=== PATIENT | male | born 1990 | race Caucasian/White ===

== ENCOUNTER 2019-08-15 21:07 | Emergency (ER) | payer MEDICAID ==
[~2019-08-15] VITALS: Ht 170.2 cm; Wt 63.6 kg
[2019-08-15] MEDS ORDERED: ACETAMINOPHEN 325 MG TABLET ONE (21:32)
[2019-08-15 21:41] LABS: APPEARANCE,URINE CLEAR (CLEAR); BILIRUBIN,URINE NEGATIVE (NEGATIVE); GLUCOSE, URINE (UA) NEGATIVE (NEGATIVE); KETONES,URINE NEGATIVE (NEGATIVE); LEUKOCYTE ESTERASE ,URINE NEGATIVE (NEGATIVE); NITRATE,URINE NEGATIVE (NEGATIVE); OCCULT BLOOD,URINE NEGATIVE (NEGATIVE); PROTEIN,URINE NEGATIVE (NEGATIVE); UROBILINOGEN,URINE 0.2 mg/dL (<=1.0)
[2019-08-15] MEDS ORDERED: ACETAMINOPHEN 325 MG TABLET PO ONE (21:45)
[2019-08-15 21:47] LABS: BACTERIA,URINE None Seen /HPF (None Seen); RBC,URINE None Seen /HPF (0-2); WBC,URINE None Seen /HPF (0-5)
[2019-08-15 21:48] LABS: BASOPHILS % (AUTO) 0.5 % (0.0-2.0); EOSINOPHILS % (AUTO) 0.3 % (1.0-6.0); HEMATOCRIT 47.5 % (41-53); HEMOGLOBIN 16.1 g/dL (13.5-17.5); LYMPHOCYTES # (AUTO) 0.9 K/uL (1.0-4.8); MEAN CORPUSCULAR HEMOGLOBIN 31.5 pg (26.0-34.0); MEAN CORPUSCULAR HGB CONC 33.9 G/dL (31.0-37.0); MEAN CORPUSCULAR VOLUME 93 fL (80-100); MONOCYTES # (AUTO) 0.7 K/uL (0.1-1.0); MONOCYTES % (AUTO) 10.6 % (2.0-9.0); NEUTROPHILS # (AUTO) 4.8 K/uL (1.8-7.7); NEUTROPHILS % (AUTO) 74.6 % (40.0-70.0); PLATELET COUNT (AUTO) 208 K/uL (150-450); RED BLOOD CELL COUNT(AUTO) 5.11 MIL/uL (4.50-5.90); RED CELL DISTRIBUTION WIDTH 12.8 % (11.5-14.5)
[2019-08-15 21:49] LABS: AMPHET/METH SCREEN,URINE NEGATIVE (NEGATIVE); BARBITURATE SCREEN, URINE NEGATIVE (NEGATIVE); BENZODIAZEPINES SCREEN,URINE NEGATIVE (NEGATIVE); CANNABINOID SCREEN,URINE NEGATIVE (NEGATIVE); COCAINE SCREEN,URINE NEGATIVE (NEGATIVE); METHADONE SCREEN, URINE NEGATIVE (NEGATIVE); OPIATE SCREEN,URINE NEGATIVE (NEGATIVE)
[2019-08-15 21:52] LABS: PHENCYCLIDINE SCREEN,URINE NEGATIVE (NEGATIVE)
[2019-08-15] MEDS ORDERED: SODIUM CHLORIDE 0.9% 1,900 ML IV ONE (22:01)
[2019-08-15 22:04] LABS: ANION GAP 9 mmol/L (8-16); CALCIUM, TOTAL 8.6 mg/dL (8.8-10.5); CARBON DIOXIDE 29 mmol/L (22-29); CHLORIDE 99 mmol/L (98-107); GLOMERULAR FILTR. RATE CALC > 60 mL/min (>60); GLUCOSE,RANDOM 108 mg/dL (70-110); POTASSIUM 4.1 mmol/L (3.5-5.1); SODIUM SERUM 137 mmol/L (136-145); UREA NITROGEN, BLOOD 10 mg/dL (7-18)
[2019-08-15 22:11] LABS: ALANINE AMINOTRANSFERASE 46 U/L (12-78); ALBUMIN 4.1 g/dL (3.4-5.0); ALKALINE PHOSPHATASE 78 U/L (46-116); ASPARTATE AMINOTRANSFERASE 25 U/L (15-37); BILIRUBIN,TOTAL 0.2 mg/dL (0.1-1.0); TOTAL PROTEIN, SERUM 7.4 g/dL (6.4-8.2)
[2019-08-15] MEDS ORDERED: 0.9% SODIUM CHLORIDE 10 ML SYRINGE IVP PRN (22:15)
[2019-08-15] MEDS ORDERED: KETOROLAC TROMETHAMINE 30 MG/ML VIAL IVP ONE (22:15)
[2019-08-15] MEDS ORDERED: SODIUM CHLORIDE 0.9% 100 ML ONE (23:56)
[2019-08-15] MEDS ORDERED: IOVERSOL 350 MG/ML 100 ML VIAL ONE (23:56)
[2019-08-16] MEDS ORDERED: DOXYCYCLINE HYCLATE 100 MG CAPSULE PO ONE (02:45)
[2019-08-16 02:48] VITALS: BP 124/76
[2019-08-17] MEDS ORDERED: DOXY100C PO (21:09)
== END 2019-08-16 03:54 | disposition home or self-care (01) ==
LOC: EMS 21:08
DX: I88.0 Nonspecific mesenteric lymphadenitis (principal); J18.9 Pneumonia, unspecified organism; F12.90 Cannabis use, unspecified, uncomplicated; F15.90 Other stimulant use, unspecified, uncomplicated; Z87.891 Personal history of nicotine dependence
CPT/HCPCS: 36415; 71045; 74177; 76870; 80053; 80307; 81001; 83605; 85025; 87040; 87491; 87591; 93005; 96374; 99285; 99406; G0480; J1885; J7030; J7050; Q9967

== ENCOUNTER 2019-08-17 20:53 | Inpatient (IN) | payer MEDICAID ==
[~2019-08-17] VITALS: Ht 170.2 cm; Wt 69.5 kg
[2019-08-17] MEDS ORDERED: DOXY100C PO (21:09)
[2019-08-17] MEDS ORDERED: PIPERACILLIN/TAZO 3.375 GM/D5W 50 ML IV ONE (21:30)
[2019-08-17] MEDS ORDERED: ACETAMINOPHEN 500 MG TABLET PO ONE (21:30)
[2019-08-17] MEDS ORDERED: 0.9% SODIUM CHLORIDE 10 ML SYRINGE IVP PRN (21:30)
[2019-08-17] MEDS ORDERED: AZITHROMYCIN 500 MG/NS 250 ML IV ONE (21:30)
[2019-08-17] MEDS ORDERED: SODIUM CHLORIDE 0.9% 2,100 ML IV ONE (21:30)
[2019-08-17] MEDS ORDERED: VANCOMYCIN HCL 1 GM/D5% WATER 200 ML IV ONE (21:30)
[2019-08-17 22:08] LABS: BASOPHILS % (AUTO) 0.4 % (0.0-2.0); EOSINOPHILS % (AUTO) 0 % (1.0-6.0); HEMATOCRIT 44.3 % (41-53); LYMPHOCYTES # (AUTO) 0.8 K/uL (1.0-4.8); MEAN CORPUSCULAR HEMOGLOBIN 31.4 pg (26.0-34.0); MEAN CORPUSCULAR HGB CONC 33.7 G/dL (31.0-37.0); MEAN CORPUSCULAR VOLUME 93 fL (80-100); MONOCYTES # (AUTO) 0.3 K/uL (0.1-1.0); MONOCYTES % (AUTO) 9.2 % (2.0-9.0); NEUTROPHILS # (AUTO) 2.4 K/uL (1.8-7.7); NEUTROPHILS % (AUTO) 68.4 % (40.0-70.0); PLATELET COUNT (AUTO) 140 K/uL (150-450); RED BLOOD CELL COUNT(AUTO) 4.76 MIL/uL (4.50-5.90); RED CELL DISTRIBUTION WIDTH 12.6 % (11.5-14.5)
[2019-08-17 22:15] LABS: ANION GAP 12 mmol/L (8-16); CALCIUM, TOTAL 8.1 mg/dL (8.8-10.5); CARBON DIOXIDE 25 mmol/L (22-29); CHLORIDE 98 mmol/L (98-107); CREATININE 1.01 mg/dL (0.60-1.30); GLOMERULAR FILTR. RATE CALC > 60 mL/min (>60); GLUCOSE,RANDOM 108 mg/dL (70-110); POTASSIUM 3.5 mmol/L (3.5-5.1); SODIUM SERUM 135 mmol/L (136-145); UREA NITROGEN, BLOOD 7 mg/dL (7-18)
[2019-08-17 22:22] LABS: LACTIC ACID 1.5 mmol/L (0.4-2.0)
[2019-08-17 22:24] LABS: INR 1.2 (0.9-1.1)
[2019-08-17 22:28] LABS: ALANINE AMINOTRANSFERASE 35 U/L (12-78); ALBUMIN 3.6 g/dL (3.4-5.0); ALKALINE PHOSPHATASE 61 U/L (46-116); ASPARTATE AMINOTRANSFERASE 22 U/L (15-37); BILIRUBIN,TOTAL 0.3 mg/dL (0.1-1.0); TOTAL PROTEIN, SERUM 6.6 g/dL (6.4-8.2)
[2019-08-17 22:31] LABS: B-TYPE NATRIURETIC PEPTIDE 8 pg/mL (0-100)
[2019-08-17 22:33] LABS: APPEARANCE,URINE CLEAR (CLEAR); BILIRUBIN,URINE NEGATIVE (NEGATIVE); GLUCOSE, URINE (UA) NEGATIVE (NEGATIVE); KETONES,URINE NEGATIVE (NEGATIVE); LEUKOCYTE ESTERASE ,URINE NEGATIVE (NEGATIVE); NITRATE,URINE NEGATIVE (NEGATIVE); OCCULT BLOOD,URINE NEGATIVE (NEGATIVE); PH,URINE 7.5 (5.0-8.0); PROTEIN,URINE NEGATIVE (NEGATIVE); UROBILINOGEN,URINE 0.2 mg/dL (<=1.0)
[2019-08-17 22:45] LABS: PLATELET MORPHOLOGY COMMENT NORMAL
[2019-08-17 23:23] LABS: INFLUENZA TYPE A NEGATIVE FOR TYPE A (NEGATIVE); INFLUENZA TYPE B NEGATIVE FOR TYPE B (NEGATIVE)
[2019-08-18] MEDS ORDERED: ACETAMINOPHEN 325 MG TABLET PO PRN
[2019-08-18 00:21] VITALS: BP 107/57
[2019-08-18] MEDS ORDERED: SODIUM CHLORIDE 0.9% 250 ML IV ONE (00:34)
[2019-08-18] MEDS ORDERED: ONDANSETRON HCL 4 MG/2 ML VIAL IVP PRN (03:45)
[2019-08-18] MEDS ORDERED: OxyCODONE HCL/ACETAMINOPHEN 5-325 MG TABLET PO PRN (03:45)
[2019-08-18] MEDS ORDERED: 0.9% SODIUM CHLORIDE 10 ML SYRINGE IVP PRN ×2 (03:45)
[2019-08-18] MEDS ORDERED: CefTRIAXone 1 GM/DEXTROSE 50 ML IV SCH (04:00)
[2019-08-18 05:18] VITALS: BP 101/62
[2019-08-18] MEDS ORDERED: LEVOFLOXACIN 750 MG/D5% WATER 150 ML IV SCH (06:00)
[2019-08-18 06:43] LABS: BASOPHILS % (AUTO) 1.1 % (0.0-2.0); EOSINOPHILS % (AUTO) 0.1 % (1.0-6.0); HEMATOCRIT 43.6 % (41-53); HEMOGLOBIN 14.6 g/dL (13.5-17.5); LYMPHOCYTES # (AUTO) 1.1 K/uL (1.0-4.8); LYMPHOCYTES % (AUTO) 43.5 % (22.0-44.0); MEAN CORPUSCULAR HEMOGLOBIN 31.2 pg (26.0-34.0); MEAN CORPUSCULAR HGB CONC 33.4 G/dL (31.0-37.0); MEAN CORPUSCULAR VOLUME 93 fL (80-100); MONOCYTES # (AUTO) 0.3 K/uL (0.1-1.0); MONOCYTES % (AUTO) 13.4 % (2.0-9.0); NEUTROPHILS # (AUTO) 1.1 K/uL (1.8-7.7); NEUTROPHILS % (AUTO) 41.9 % (40.0-70.0); PLATELET COUNT (AUTO) 124 K/uL (150-450); RED BLOOD CELL COUNT(AUTO) 4.68 MIL/uL (4.50-5.90); RED CELL DISTRIBUTION WIDTH 12.8 % (11.5-14.5)
[2019-08-18 07:21] LABS: ALANINE AMINOTRANSFERASE 29 U/L (12-78); ALKALINE PHOSPHATASE 51 U/L (46-116); ANION GAP 9 mmol/L (8-16); ASPARTATE AMINOTRANSFERASE 22 U/L (15-37); BILIRUBIN,TOTAL 0.2 mg/dL (0.1-1.0); CALCIUM, TOTAL 7.3 mg/dL (8.8-10.5); CARBON DIOXIDE 26 mmol/L (22-29); CHLORIDE 105 mmol/L (98-107); CREATININE 1.03 mg/dL (0.60-1.30); GLOMERULAR FILTR. RATE CALC > 60 mL/min (>60); GLUCOSE,RANDOM 97 mg/dL (70-110); POTASSIUM 3.9 mmol/L (3.5-5.1); SODIUM SERUM 140 mmol/L (136-145); TOTAL PROTEIN, SERUM 5.5 g/dL (6.4-8.2); UREA NITROGEN, BLOOD 7 mg/dL (7-18)
[2019-08-18 08:07] VITALS: BP 110/62
[2019-08-18] MEDS ORDERED: SODIUM CHLORIDE 0.9% 500 ML IV ONE (08:20)
[2019-08-18] MEDS: DOCUSATE SODIUM 100 MG CAPSULE PO SCH ×2 (08:21→20:44)
[2019-08-18] MEDS ORDERED: FAMOTIDINE 10 MG/ML 2 ML VIAL IVP SCH (09:00)
[2019-08-18] MEDS ORDERED: *CLINICAL-CEFEPIME DOSING CLINICAL ONE (11:45)
[2019-08-18 11:54] VITALS: BP 116/67
[2019-08-18] MEDS ORDERED: IPRATROPIUM BROMIDE 0.5 MG/2.5 ML NEB SOLUTION NEB PRN (12:00)
[2019-08-18] MEDS ORDERED: ALBUTEROL SULFATE 2.5 MG/0.5 ML NEB SOLUTION NEB PRN (12:00)
[2019-08-18] MEDS ORDERED: LEVOFLOXACIN 500 MG/D5% WATER 100 ML IV SCH (12:00)
[2019-08-18] MEDS: CEFEPIME HCL 2 GM in DEXTROSE 5%-WATER 50 ML IV SCH ×2 (13:51→22:52)
[2019-08-18 15:45] VITALS: BP 115/63
[2019-08-18] MEDS: SODIUM CHLORIDE 0.9% 1,000 ML IV SCH ×2 (18:38→22:52)
[2019-08-18] MEDS: ACETAMINOPHEN 325 MG TABLET PO PRN (18:43)
[2019-08-18 20:07] VITALS: BP 112/68
[2019-08-18] MEDS: OxyCODONE HCL/ACETAMINOPHEN 5-325 MG TABLET PO PRN (20:44)
[2019-08-18] MEDS: FAMOTIDINE 10 MG/ML 2 ML VIAL IVP SCH (20:44)
[2019-08-19 00:16] VITALS: BP 105/61
[2019-08-19] MEDS: ACETAMINOPHEN 325 MG TABLET PO PRN (03:42)
[2019-08-19 04:00] VITALS: BP 108/58
[2019-08-19] MEDS ORDERED: LEVOFLOXACIN 500 MG/D5% WATER 100 ML IV SCH (05:00)
[2019-08-19 05:04] LABS: BASOPHILS % (AUTO) 0.6 % (0.0-2.0); EOSINOPHILS % (AUTO) 0.1 % (1.0-6.0); HEMOGLOBIN 14.7 g/dL (13.5-17.5); LYMPHOCYTES # (AUTO) 1.3 K/uL (1.0-4.8); LYMPHOCYTES % (AUTO) 41.9 % (22.0-44.0); MEAN CORPUSCULAR HEMOGLOBIN 31.5 pg (26.0-34.0); MEAN CORPUSCULAR HGB CONC 33.3 G/dL (31.0-37.0); MEAN CORPUSCULAR VOLUME 95 fL (80-100); MONOCYTES # (AUTO) 0.4 K/uL (0.1-1.0); MONOCYTES % (AUTO) 11.5 % (2.0-9.0); NEUTROPHILS # (AUTO) 1.4 K/uL (1.8-7.7); NEUTROPHILS % (AUTO) 45.9 % (40.0-70.0); PLATELET COUNT (AUTO) 101 K/uL (150-450); RED BLOOD CELL COUNT(AUTO) 4.66 MIL/uL (4.50-5.90); RED CELL DISTRIBUTION WIDTH 12.5 % (11.5-14.5)
[2019-08-19 05:13] LABS: ANION GAP 8 mmol/L (8-16); CARBON DIOXIDE 25 mmol/L (22-29); CHLORIDE 101 mmol/L (98-107); CREATININE 1.02 mg/dL (0.60-1.30); GLOMERULAR FILTR. RATE CALC > 60 mL/min (>60); GLUCOSE,RANDOM 106 mg/dL (70-110); POTASSIUM 3.6 mmol/L (3.5-5.1); SODIUM SERUM 134 mmol/L (136-145); UREA NITROGEN, BLOOD 8 mg/dL (7-18)
[2019-08-19] MEDS: CEFEPIME HCL 2 GM in DEXTROSE 5%-WATER 50 ML IV SCH ×3 (05:31→22:04)
[2019-08-19 07:30] VITALS: BP 124/63
[2019-08-19] MEDS: DOCUSATE SODIUM 100 MG CAPSULE PO SCH ×2 (09:00→20:35)
[2019-08-19] MEDS: FAMOTIDINE 10 MG/ML 2 ML VIAL IVP SCH ×2 (09:28→20:36)
[2019-08-19 11:40] VITALS: BP 108/61
[2019-08-19 15:36] VITALS: BP 116/59
[2019-08-19] MEDS: SODIUM CHLORIDE 0.9% 1,000 ML IV SCH (19:17)
[2019-08-19] MEDS: OxyCODONE HCL/ACETAMINOPHEN 5-325 MG TABLET PO PRN (19:20)
[2019-08-19 19:54] VITALS: BP 116/58
[2019-08-20] VITALS (7 sets, daily range): BP systolic 96–119; BP diastolic 48–69
[2019-08-20] MEDS: SODIUM CHLORIDE 0.9% 1,000 ML IV SCH ×2 (04:47→17:19)
[2019-08-20] MEDS: CEFEPIME HCL 2 GM in DEXTROSE 5%-WATER 50 ML IV SCH ×3 (05:48→21:52)
[2019-08-20 06:48] LABS: BASOPHILS % (AUTO) 0.4 % (0.0-2.0); EOSINOPHILS % (AUTO) 0.2 % (1.0-6.0); HEMATOCRIT 42.3 % (41-53); HEMOGLOBIN 14.5 g/dL (13.5-17.5); LYMPHOCYTES # (AUTO) 1.6 K/uL (1.0-4.8); LYMPHOCYTES % (AUTO) 42.5 % (22.0-44.0); MEAN CORPUSCULAR HEMOGLOBIN 31.7 pg (26.0-34.0); MEAN CORPUSCULAR HGB CONC 34.2 G/dL (31.0-37.0); MEAN CORPUSCULAR VOLUME 93 fL (80-100); MONOCYTES # (AUTO) 0.3 K/uL (0.1-1.0); MONOCYTES % (AUTO) 8.4 % (2.0-9.0); NEUTROPHILS # (AUTO) 1.8 K/uL (1.8-7.7); NEUTROPHILS % (AUTO) 48.5 % (40.0-70.0); PLATELET COUNT (AUTO) 101 K/uL (150-450); RED BLOOD CELL COUNT(AUTO) 4.56 MIL/uL (4.50-5.90); RED CELL DISTRIBUTION WIDTH 12.6 % (11.5-14.5)
[2019-08-20 07:04] LABS: ANION GAP 7 mmol/L (8-16); CALCIUM, TOTAL 8.1 mg/dL (8.8-10.5); CARBON DIOXIDE 27 mmol/L (22-29); CHLORIDE 103 mmol/L (98-107); CREATININE 0.95 mg/dL (0.60-1.30); GLOMERULAR FILTR. RATE CALC > 60 mL/min (>60); GLUCOSE,RANDOM 100 mg/dL (70-110); POTASSIUM 4.5 mmol/L (3.5-5.1); SODIUM SERUM 137 mmol/L (136-145); UREA NITROGEN, BLOOD 7 mg/dL (7-18)
[2019-08-20] MEDS: AZITHROMYCIN 250 MG TABLET PO SCH (07:56)
[2019-08-20] MEDS: FAMOTIDINE 10 MG/ML 2 ML VIAL IVP SCH ×2 (07:57→20:51)
[2019-08-20] MEDS: DOCUSATE SODIUM 100 MG CAPSULE PO SCH ×2 (07:58→20:51)
[2019-08-20] MEDS ORDERED: SODIUM CHLORIDE 3% 15 ML NEB SOLUTION NEB ONE ×2 (11:30)
[2019-08-20] MEDS ORDERED: GADOBUTROL 1 MMOL/ML 10 ML VIAL IVP ONE (13:59)
[2019-08-20] MEDS: SODIUM CHLORIDE 3% 15 ML NEB SOLUTION NEB ONE (18:30)
[2019-08-21] MEDS: SODIUM CHLORIDE 0.9% 1,000 ML IV SCH ×2 (04:03→10:03)
[2019-08-21 04:15] VITALS: BP 98/55
[2019-08-21] MEDS: SODIUM CHLORIDE 3% 15 ML NEB SOLUTION NEB ONE (04:57)
[2019-08-21] MEDS: CEFEPIME HCL 2 GM in DEXTROSE 5%-WATER 50 ML IV SCH ×3 (05:19→21:57)
[2019-08-21 06:26] LABS: BASOPHILS % (AUTO) 0.3 % (0.0-2.0); EOSINOPHILS % (AUTO) 0.5 % (1.0-6.0); HEMATOCRIT 41.5 % (41-53); HEMOGLOBIN 14.2 g/dL (13.5-17.5); LYMPHOCYTES # (AUTO) 1.8 K/uL (1.0-4.8); LYMPHOCYTES % (AUTO) 51.6 % (22.0-44.0); MEAN CORPUSCULAR HEMOGLOBIN 31.6 pg (26.0-34.0); MEAN CORPUSCULAR HGB CONC 34.2 G/dL (31.0-37.0); MEAN CORPUSCULAR VOLUME 92 fL (80-100); MONOCYTES # (AUTO) 0.4 K/uL (0.1-1.0); MONOCYTES % (AUTO) 10.7 % (2.0-9.0); NEUTROPHILS # (AUTO) 1.3 K/uL (1.8-7.7); NEUTROPHILS % (AUTO) 36.9 % (40.0-70.0); PLATELET COUNT (AUTO) 102 K/uL (150-450); RED CELL DISTRIBUTION WIDTH 12.8 % (11.5-14.5)
[2019-08-21 06:36] LABS: ANION GAP 5 mmol/L (8-16); CALCIUM, TOTAL 8.3 mg/dL (8.8-10.5); CARBON DIOXIDE 29 mmol/L (22-29); CHLORIDE 101 mmol/L (98-107); CREATININE 0.83 mg/dL (0.60-1.30); GLOMERULAR FILTR. RATE CALC > 60 mL/min (>60); GLUCOSE,RANDOM 102 mg/dL (70-110); POTASSIUM 4.1 mmol/L (3.5-5.1); SODIUM SERUM 135 mmol/L (136-145); UREA NITROGEN, BLOOD 8 mg/dL (7-18)
[2019-08-21 07:35] VITALS: BP 101/61
[2019-08-21] MEDS: FAMOTIDINE 10 MG/ML 2 ML VIAL IVP SCH ×2 (07:54→20:13)
[2019-08-21] MEDS: DOCUSATE SODIUM 100 MG CAPSULE PO SCH ×3 (07:54→20:18)
[2019-08-21] MEDS: AZITHROMYCIN 250 MG TABLET PO SCH (07:54)
[2019-08-21 10:11] LABS: LEGIONELLA PNEUMO AG URINE Negative (Negative); ORGANISM ID Not indicated.; S PNEUMO SOURCE Urine; STREP PNEUMONIAE AG URINE Negative (Negative); STREP.PNEUMO BODY FLUID CULT. Not Indicated
[2019-08-21 11:00] VITALS: BP_SYST 101; BP_DIAS 52; BP_DIAS 61
[2019-08-21 15:15] VITALS: BP 103/62
[2019-08-21 19:38] VITALS: BP 105/59
[2019-08-21] MEDS: OxyCODONE HCL/ACETAMINOPHEN 5-325 MG TABLET PO PRN (20:13)
[2019-08-21 21:19] LABS: QUANTIFERON+, Nil Value 0.43 IU/mL; QUANTIFERON+,Mitogen Value >10.00 IU/mL; QUANTIFERON+,TB1 Antigen Value 1.23 IU/mL; QUANTIFERON, TB GOLD PLUS Positive (Negative)
[2019-08-21 23:58] VITALS: BP 99/60
[2019-08-22 05:50] VITALS: BP 91/60
[2019-08-22] MEDS: CEFEPIME HCL 2 GM in DEXTROSE 5%-WATER 50 ML IV SCH ×3 (05:55→21:57)
[2019-08-22] MEDS: DOCUSATE SODIUM 100 MG CAPSULE PO SCH ×2 (07:38→20:21)
[2019-08-22 07:40] LABS: BASOPHILS % (AUTO) 0.3 % (0.0-2.0); EOSINOPHILS % (AUTO) 1.2 % (1.0-6.0); HEMATOCRIT 43.1 % (41-53); HEMOGLOBIN 14.9 g/dL (13.5-17.5); LYMPHOCYTES # (AUTO) 1.4 K/uL (1.0-4.8); LYMPHOCYTES % (AUTO) 40.1 % (22.0-44.0); MEAN CORPUSCULAR HEMOGLOBIN 31.9 pg (26.0-34.0); MEAN CORPUSCULAR HGB CONC 34.6 G/dL (31.0-37.0); MEAN CORPUSCULAR VOLUME 92 fL (80-100); MONOCYTES # (AUTO) 0.4 K/uL (0.1-1.0); MONOCYTES % (AUTO) 10.2 % (2.0-9.0); NEUTROPHILS # (AUTO) 1.7 K/uL (1.8-7.7); NEUTROPHILS % (AUTO) 48.2 % (40.0-70.0); PLATELET COUNT (AUTO) 121 K/uL (150-450); RED BLOOD CELL COUNT(AUTO) 4.66 MIL/uL (4.50-5.90); RED CELL DISTRIBUTION WIDTH 12.3 % (11.5-14.5)
[2019-08-22 07:49] LABS: ANION GAP 10 mmol/L (8-16); CALCIUM, TOTAL 8.3 mg/dL (8.8-10.5); CARBON DIOXIDE 27 mmol/L (22-29); CHLORIDE 102 mmol/L (98-107); CREATININE 0.87 mg/dL (0.60-1.30); GLOMERULAR FILTR. RATE CALC > 60 mL/min (>60); GLUCOSE,RANDOM 98 mg/dL (70-110); POTASSIUM 4.4 mmol/L (3.5-5.1); SODIUM SERUM 139 mmol/L (136-145); UREA NITROGEN, BLOOD 11 mg/dL (7-18)
[2019-08-22] MEDS: AZITHROMYCIN 250 MG TABLET PO SCH (07:50)
[2019-08-22] MEDS: FAMOTIDINE 10 MG/ML 2 ML VIAL IVP SCH ×2 (07:50→20:14)
[2019-08-22 08:05] VITALS: BP 102/65
[2019-08-22 11:10] VITALS: BP 108/57
[2019-08-22 15:02] VITALS: BP 104/51
[2019-08-22] MEDS ORDERED: BARIUM SULFATE 0.1% SUSPENSION 450 ML BOTTLE ONE (15:28)
[2019-08-22] MEDS ORDERED: IOVERSOL 320 MG/ML 100 ML VIAL ONE (15:38)
[2019-08-22] MEDS ORDERED: SODIUM CHLORIDE 0.9% 100 ML ONE (15:38)
[2019-08-22 19:55] VITALS: BP 106/57
[2019-08-22 23:13] VITALS: BP 95/60
[2019-08-23 05:50] VITALS: BP 98/58
[2019-08-23] MEDS: CEFEPIME HCL 2 GM in DEXTROSE 5%-WATER 50 ML IV SCH ×3 (06:03→21:30)
[2019-08-23 08:10] VITALS: BP 104/54
[2019-08-23] MEDS: AZITHROMYCIN 250 MG TABLET PO SCH (08:16)
[2019-08-23] MEDS: FAMOTIDINE 10 MG/ML 2 ML VIAL IVP SCH ×2 (08:16→20:21)
[2019-08-23] MEDS: DOCUSATE SODIUM 100 MG CAPSULE PO SCH ×3 (08:16→20:34)
[2019-08-23 11:26] VITALS: BP 110/65
[2019-08-23 15:55] VITALS: BP 106/62
[2019-08-23 20:14] VITALS: BP 104/71
[2019-08-24] VITALS (7 sets, daily range): BP systolic 90–107; BP diastolic 51–82
[2019-08-24] MEDS: CEFEPIME HCL 2 GM in DEXTROSE 5%-WATER 50 ML IV SCH ×3 (05:25→21:53)
[2019-08-24 05:32] LABS: BASOPHILS % (AUTO) 0.5 % (0.0-2.0); EOSINOPHILS % (AUTO) 2.9 % (1.0-6.0); HEMATOCRIT 42.6 % (41-53); HEMOGLOBIN 15.1 g/dL (13.5-17.5); LYMPHOCYTES # (AUTO) 1.7 K/uL (1.0-4.8); LYMPHOCYTES % (AUTO) 32.8 % (22.0-44.0); MEAN CORPUSCULAR HEMOGLOBIN 31.9 pg (26.0-34.0); MEAN CORPUSCULAR HGB CONC 35.5 G/dL (31.0-37.0); MEAN CORPUSCULAR VOLUME 90 fL (80-100); MONOCYTES # (AUTO) 0.6 K/uL (0.1-1.0); MONOCYTES % (AUTO) 11.5 % (2.0-9.0); NEUTROPHILS # (AUTO) 2.7 K/uL (1.8-7.7); NEUTROPHILS % (AUTO) 52.3 % (40.0-70.0); PLATELET COUNT (AUTO) 224 K/uL (150-450); RED BLOOD CELL COUNT(AUTO) 4.74 MIL/uL (4.50-5.90); RED CELL DISTRIBUTION WIDTH 12.2 % (11.5-14.5)
[2019-08-24 05:40] LABS: CARBON DIOXIDE 25 mmol/L (22-29); CHLORIDE 103 mmol/L (98-107); POTASSIUM 3.9 mmol/L (3.5-5.1); SODIUM SERUM 138 mmol/L (136-145)
[2019-08-24 05:41] LABS: ANION GAP 10 mmol/L (8-16); CALCIUM, TOTAL 8.8 mg/dL (8.8-10.5); CREATININE 0.82 mg/dL (0.60-1.30); GLOMERULAR FILTR. RATE CALC > 60 mL/min (>60); GLUCOSE,RANDOM 105 mg/dL (70-110); UREA NITROGEN, BLOOD 10 mg/dL (7-18)
[2019-08-24] MEDS: FAMOTIDINE 10 MG/ML 2 ML VIAL IVP SCH ×2 (08:30→19:34)
[2019-08-24] MEDS: AZITHROMYCIN 250 MG TABLET PO SCH (08:30)
[2019-08-24] MEDS: DOCUSATE SODIUM 100 MG CAPSULE PO SCH (21:00)
[2019-08-24] MEDS ORDERED: SODIUM CHLORIDE 0.9% 500 ML IV ONE (21:47)
[2019-08-25] MEDS: CEFEPIME HCL 2 GM in DEXTROSE 5%-WATER 50 ML IV SCH ×2 (05:19→13:31)
[2019-08-25 05:44] VITALS: BP 97/54
[2019-08-25 05:51] LABS: BASOPHILS % (AUTO) 0.6 % (0.0-2.0); EOSINOPHILS % (AUTO) 2.5 % (1.0-6.0); HEMATOCRIT 42.2 % (41-53); HEMOGLOBIN 14.6 g/dL (13.5-17.5); LYMPHOCYTES # (AUTO) 1.8 K/uL (1.0-4.8); LYMPHOCYTES % (AUTO) 26.1 % (22.0-44.0); MEAN CORPUSCULAR HEMOGLOBIN 31.5 pg (26.0-34.0); MEAN CORPUSCULAR HGB CONC 34.6 G/dL (31.0-37.0); MEAN CORPUSCULAR VOLUME 91 fL (80-100); MONOCYTES # (AUTO) 0.8 K/uL (0.1-1.0); MONOCYTES % (AUTO) 11.6 % (2.0-9.0); NEUTROPHILS # (AUTO) 4.1 K/uL (1.8-7.7); NEUTROPHILS % (AUTO) 59.2 % (40.0-70.0); PLATELET COUNT (AUTO) 277 K/uL (150-450); RED BLOOD CELL COUNT(AUTO) 4.64 MIL/uL (4.50-5.90); RED CELL DISTRIBUTION WIDTH 12.3 % (11.5-14.5)
[2019-08-25 06:15] LABS: ANION GAP 10 mmol/L (8-16); CARBON DIOXIDE 23 mmol/L (22-29); CHLORIDE 104 mmol/L (98-107); CREATININE 0.87 mg/dL (0.60-1.30); GLUCOSE,RANDOM 102 mg/dL (70-110); POTASSIUM 3.7 mmol/L (3.5-5.1); SODIUM SERUM 137 mmol/L (136-145); UREA NITROGEN, BLOOD 12 mg/dL (7-18)
[2019-08-25 06:16] LABS: CALCIUM, TOTAL 8.7 mg/dL (8.8-10.5); GLOMERULAR FILTR. RATE CALC > 60 mL/min (>60)
[2019-08-25 08:00] VITALS: BP 109/64
[2019-08-25] MEDS: FAMOTIDINE 10 MG/ML 2 ML VIAL IVP SCH ×2 (08:27→20:03)
[2019-08-25] MEDS: AZITHROMYCIN 250 MG TABLET PO SCH (08:27)
[2019-08-25] MEDS: DOCUSATE SODIUM 100 MG CAPSULE PO SCH ×2 (08:27→20:03)
[2019-08-25 11:21] VITALS: BP 97/48
[2019-08-25 16:00] VITALS: BP 103/61
[2019-08-25 19:51] VITALS: BP 103/50
[2019-08-26 01:06] VITALS: BP 98/57
[2019-08-26 04:49] VITALS: BP 98/58
[2019-08-26 06:23] LABS: ANION GAP 9 mmol/L (8-16); CALCIUM, TOTAL 8.8 mg/dL (8.8-10.5); CARBON DIOXIDE 26 mmol/L (22-29); CHLORIDE 103 mmol/L (98-107); CREATININE 0.85 mg/dL (0.60-1.30); GLOMERULAR FILTR. RATE CALC > 60 mL/min (>60); GLUCOSE,RANDOM 98 mg/dL (70-110); POTASSIUM 4.1 mmol/L (3.5-5.1); SODIUM SERUM 138 mmol/L (136-145); UREA NITROGEN, BLOOD 11 mg/dL (7-18)
[2019-08-26 06:27] LABS: BASOPHILS % (AUTO) 1.4 % (0.0-2.0); EOSINOPHILS % (AUTO) 1.4 % (1.0-6.0); HEMATOCRIT 44.5 % (41-53); HEMOGLOBIN 15.5 g/dL (13.5-17.5); LYMPHOCYTES % (AUTO) 28.8 % (22.0-44.0); MEAN CORPUSCULAR HEMOGLOBIN 31.7 pg (26.0-34.0); MEAN CORPUSCULAR HGB CONC 34.8 G/dL (31.0-37.0); MEAN CORPUSCULAR VOLUME 91 fL (80-100); MONOCYTES # (AUTO) 0.6 K/uL (0.1-1.0); MONOCYTES % (AUTO) 9.1 % (2.0-9.0); NEUTROPHILS # (AUTO) 4.1 K/uL (1.8-7.7); NEUTROPHILS % (AUTO) 59.3 % (40.0-70.0); PLATELET COUNT (AUTO) 339 K/uL (150-450); RED BLOOD CELL COUNT(AUTO) 4.88 MIL/uL (4.50-5.90); RED CELL DISTRIBUTION WIDTH 12.5 % (11.5-14.5)
[2019-08-26] MEDS: FAMOTIDINE 20 MG TABLET PO SCH (07:42)
[2019-08-26] MEDS: DOCUSATE SODIUM 100 MG CAPSULE PO SCH ×3 (07:42→20:06)
[2019-08-26 08:00] VITALS: BP 96/53
[2019-08-26 12:00] VITALS: BP 113/60
[2019-08-26 16:31] VITALS: BP 97/58
[2019-08-26 19:37] VITALS: BP 101/50
[2019-08-27 00:06] VITALS: BP 103/53
[2019-08-27 04:36] VITALS: BP 104/67
[2019-08-27 08:00] VITALS: BP 101/62
[2019-08-27] MEDS: DOCUSATE SODIUM 100 MG CAPSULE PO SCH ×2 (09:00→21:00)
[2019-08-27] MEDS: FAMOTIDINE 20 MG TABLET PO SCH (09:25)
[2019-08-27 12:00] VITALS: BP 104/60
[2019-08-27 16:00] VITALS: BP 102/55
[2019-08-27 17:06] LABS: HIV 1-2 SCREEN 4TH GEN W/RFLX Reactive (Non Reactive); HIV INTERPRETATION Negative; HIV-1 ANTIBODY(MULTISPOT) Negative (Negative); HIV-2 ANTIBODY(MULTISPOT) Negative (Negative); HIV1 RNA QUAL. (NAA) Positive (Negative)
[2019-08-27 20:48] VITALS: BP 102/57
[2019-08-28] VITALS (7 sets, daily range): BP systolic 95–126; BP diastolic 57–65
[2019-08-28] MEDS ORDERED: INFLUENZA VIRUS VACCINE QVS 2019-20 (3YR+)/PF 60 MCG/0.5 ML SYRINGE IM ONE (07:15)
[2019-08-28] MEDS: FAMOTIDINE 20 MG TABLET PO SCH (08:18)
[2019-08-28] MEDS: DOCUSATE SODIUM 100 MG CAPSULE PO SCH ×2 (09:00→21:00)
[2019-08-29 04:31] VITALS: BP 109/69
[2019-08-29 07:10] VITALS: BP 115/72
[2019-08-29] MEDS: DOCUSATE SODIUM 100 MG CAPSULE PO SCH ×3 (07:52→21:12)
[2019-08-29] MEDS: FAMOTIDINE 20 MG TABLET PO SCH (07:53)
[2019-08-29 11:00] VITALS: BP 111/68
[2019-08-29 15:10] VITALS: BP 107/63
[2019-08-29 20:00] VITALS: BP 106/54
[2019-08-29] MEDS: ZOLPIDEM TARTRATE 5 MG TABLET PO PRN (21:12)
[2019-08-29 23:30] VITALS: BP 125/60
[2019-08-30 04:15] VITALS: BP 102/56
[2019-08-30 07:35] VITALS: BP 109/56
[2019-08-30] MEDS: DOCUSATE SODIUM 100 MG CAPSULE PO SCH ×3 (08:37→21:08)
[2019-08-30] MEDS: FAMOTIDINE 20 MG TABLET PO SCH (08:37)
[2019-08-30] MEDS: PYRIDOXINE HCL 50 MG TABLET PO SCH (11:10)
[2019-08-30] MEDS: ETHAMBUTOL HCL 400 MG TABLET PO SCH (11:11)
[2019-08-30] MEDS: RIFAMPIN 300 MG CAPSULE PO SCH (11:11)
[2019-08-30] MEDS: ISONIAZID 300 MG TABLET PO SCH (11:11)
[2019-08-30] MEDS: PYRAZINAMIDE 500 MG TABLET PO SCH (11:11)
[2019-08-30 11:42] VITALS: BP 117/75
[2019-08-30 15:00] VITALS: BP 115/57
[2019-08-30 20:09] VITALS: BP 108/59
[2019-08-30] MEDS: ZOLPIDEM TARTRATE 5 MG TABLET PO PRN (21:09)
[2019-08-31] VITALS (8 sets, daily range): BP systolic 90–113; BP diastolic 51–69
[2019-08-31 06:26] LABS: BAND NEUTROPHILS % (MANUAL) 0 % (0-5)
[2019-08-31 06:32] LABS: HEMATOCRIT 43.4 % (41-53); HEMOGLOBIN 14.8 g/dL (13.5-17.5); MEAN CORPUSCULAR HEMOGLOBIN 31.6 pg (26.0-34.0); MEAN CORPUSCULAR HGB CONC 34.2 G/dL (31.0-37.0); MEAN CORPUSCULAR VOLUME 92 fL (80-100); PLATELET COUNT (AUTO) 336 K/uL (150-450); RED CELL DISTRIBUTION WIDTH 12.2 % (11.5-14.5)
[2019-08-31 06:51] LABS: ALANINE AMINOTRANSFERASE 47 U/L (12-78); ALBUMIN 3.7 g/dL (3.4-5.0); ALKALINE PHOSPHATASE 68 U/L (46-116); ANION GAP 7 mmol/L (8-16); ASPARTATE AMINOTRANSFERASE 18 U/L (15-37); BILIRUBIN,TOTAL 0.9 mg/dL (0.1-1.0); CALCIUM, TOTAL 9.1 mg/dL (8.8-10.5); CARBON DIOXIDE 30 mmol/L (22-29); CHLORIDE 102 mmol/L (98-107); GLOMERULAR FILTR. RATE CALC > 60 mL/min (>60); GLUCOSE,RANDOM 94 mg/dL (70-110); POTASSIUM 4.4 mmol/L (3.5-5.1); SODIUM SERUM 139 mmol/L (136-145); TOTAL PROTEIN, SERUM 6.8 g/dL (6.4-8.2); UREA NITROGEN, BLOOD 10 mg/dL (7-18)
[2019-08-31] MEDS: ETHAMBUTOL HCL 400 MG TABLET PO SCH (08:41)
[2019-08-31] MEDS: ISONIAZID 300 MG TABLET PO SCH (08:41)
[2019-08-31] MEDS: RIFAMPIN 300 MG CAPSULE PO SCH (08:41)
[2019-08-31] MEDS: PYRIDOXINE HCL 50 MG TABLET PO SCH (08:41)
[2019-08-31] MEDS: DOCUSATE SODIUM 100 MG CAPSULE PO SCH ×2 (08:42→21:00)
[2019-08-31] MEDS: PYRAZINAMIDE 500 MG TABLET PO SCH (08:42)
[2019-08-31] MEDS: FAMOTIDINE 20 MG TABLET PO SCH (08:42)
[2019-08-31 09:00] LABS: EOSINOPHILS % (MANUAL) 1 % (1-6); LYMPHOCYTES % (MANUAL) 31 % (22-44); MONOCYTES % (MANUAL) 10 % (2-9); REACTIVE LYMPHOCYTES 5 % (0-0); SEGMENTED NEUTROPHILS % 53 % (40-70)
[2019-08-31] MEDS: ZOLPIDEM TARTRATE 5 MG TABLET PO PRN (21:47)
[2019-09-01 04:22] VITALS: BP 118/75
[2019-09-01 08:00] VITALS: BP 112/59
[2019-09-01] MEDS: ISONIAZID 300 MG TABLET PO SCH (08:53)
[2019-09-01] MEDS: ETHAMBUTOL HCL 400 MG TABLET PO SCH (08:54)
[2019-09-01] MEDS: FAMOTIDINE 20 MG TABLET PO SCH (08:54)
[2019-09-01] MEDS: RIFAMPIN 300 MG CAPSULE PO SCH (08:55)
[2019-09-01] MEDS: PYRAZINAMIDE 500 MG TABLET PO SCH (08:55)
[2019-09-01] MEDS: PYRIDOXINE HCL 50 MG TABLET PO SCH (08:55)
[2019-09-01] MEDS: DOCUSATE SODIUM 100 MG CAPSULE PO SCH ×2 (08:56→21:00)
[2019-09-01 13:01] VITALS: BP 109/60
[2019-09-01 15:53] VITALS: BP 117/71
[2019-09-01 20:37] VITALS: BP 120/72
[2019-09-01] MEDS: ZOLPIDEM TARTRATE 5 MG TABLET PO PRN (22:18)
[2019-09-02 00:01] VITALS: BP 108/55
[2019-09-02 04:00] VITALS: BP 116/62
[2019-09-02 05:52] LABS: BASOPHILS % (AUTO) 0.9 % (0.0-2.0); EOSINOPHILS % (AUTO) 0.6 % (1.0-6.0); HEMATOCRIT 44.9 % (41-53); HEMOGLOBIN 15.2 g/dL (13.5-17.5); LYMPHOCYTES # (AUTO) 2.1 K/uL (1.0-4.8); LYMPHOCYTES % (AUTO) 33.9 % (22.0-44.0); MEAN CORPUSCULAR HEMOGLOBIN 31.2 pg (26.0-34.0); MEAN CORPUSCULAR HGB CONC 33.9 G/dL (31.0-37.0); MEAN CORPUSCULAR VOLUME 92 fL (80-100); MONOCYTES # (AUTO) 0.6 K/uL (0.1-1.0); MONOCYTES % (AUTO) 9.4 % (2.0-9.0); NEUTROPHILS # (AUTO) 3.3 K/uL (1.8-7.7); NEUTROPHILS % (AUTO) 55.2 % (40.0-70.0); PLATELET COUNT (AUTO) 304 K/uL (150-450); RED BLOOD CELL COUNT(AUTO) 4.87 MIL/uL (4.50-5.90); RED CELL DISTRIBUTION WIDTH 12.5 % (11.5-14.5)
[2019-09-02 06:03] LABS: ANION GAP 9 mmol/L (8-16); CALCIUM, TOTAL 8.9 mg/dL (8.8-10.5); CARBON DIOXIDE 28 mmol/L (22-29); CHLORIDE 104 mmol/L (98-107); CREATININE 0.97 mg/dL (0.60-1.30); GLOMERULAR FILTR. RATE CALC > 60 mL/min (>60); GLUCOSE,RANDOM 93 mg/dL (70-110); POTASSIUM 4.2 mmol/L (3.5-5.1); SODIUM SERUM 141 mmol/L (136-145); UREA NITROGEN, BLOOD 11 mg/dL (7-18)
[2019-09-02 07:25] VITALS: BP 103/61
[2019-09-02] MEDS: ISONIAZID 300 MG TABLET PO SCH (09:27)
[2019-09-02] MEDS: PYRAZINAMIDE 500 MG TABLET PO SCH (09:27)
[2019-09-02] MEDS: PYRIDOXINE HCL 50 MG TABLET PO SCH (09:27)
[2019-09-02] MEDS: ETHAMBUTOL HCL 400 MG TABLET PO SCH (09:27)
[2019-09-02] MEDS: RIFAMPIN 300 MG CAPSULE PO SCH (09:27)
[2019-09-02] MEDS: FAMOTIDINE 20 MG TABLET PO SCH (09:27)
[2019-09-02] MEDS: DOCUSATE SODIUM 100 MG CAPSULE PO SCH ×2 (09:27→21:00)
[2019-09-02 11:22] VITALS: BP_SYST 128; BP_SYST 171; BP_DIAS 76; BP_DIAS 85
[2019-09-02 15:51] VITALS: BP 106/63
[2019-09-02 20:15] VITALS: BP 109/53
[2019-09-02] MEDS: ZOLPIDEM TARTRATE 5 MG TABLET PO PRN (21:45)
[2019-09-03 00:15] VITALS: BP 100/61
[2019-09-03 04:54] VITALS: BP 104/62
[2019-09-03 06:56] LABS: ALBUMIN 3.8 g/dL (3.4-5.0); BILIRUBIN,DIRECT 0.1 mg/dL (0.00-0.20); BILIRUBIN,TOTAL 0.3 mg/dL (0.1-1.0); TOTAL PROTEIN, SERUM 7.1 g/dL (6.4-8.2)
[2019-09-03 07:57] VITALS: BP 113/69
[2019-09-03] MEDS: PYRAZINAMIDE 500 MG TABLET PO SCH (08:16)
[2019-09-03] MEDS: ISONIAZID 300 MG TABLET PO SCH (08:16)
[2019-09-03] MEDS: FAMOTIDINE 20 MG TABLET PO SCH (08:16)
[2019-09-03] MEDS: DOCUSATE SODIUM 100 MG CAPSULE PO SCH ×2 (08:16→09:00)
[2019-09-03] MEDS: RIFAMPIN 300 MG CAPSULE PO SCH (08:17)
[2019-09-03] MEDS: ETHAMBUTOL HCL 400 MG TABLET PO SCH (08:17)
[2019-09-03] MEDS: PYRIDOXINE HCL 50 MG TABLET PO SCH (08:17)
[2019-09-03 11:35] VITALS: BP 130/80
[2019-09-03] MEDS ORDERED: ISON300 PO (15:17)
[2019-09-03] MEDS ORDERED: ETHA400T8 PO (15:18)
[2019-09-03] MEDS ORDERED: PYRA500 PO (15:19)
[2019-09-03] MEDS ORDERED: PYRI50 PO (15:20)
[2019-09-03] MEDS ORDERED: RIFA300 PO (15:20)
[2019-09-03 15:46] VITALS: BP 118/78
== END 2019-09-03 18:06 | disposition home or self-care (01) | DRG 720 ==
LOC: EMS 20:53 → 4E 22:30
PROVIDERS: ADMIT Internal Medicine; ATTEND Internal Medicine
DX: A41.9 Sepsis, unspecified organism (principal); J15.9 Unspecified bacterial pneumonia; I88.0 Nonspecific mesenteric lymphadenitis; I88.9 Nonspecific lymphadenitis, unspecified; Z87.891 Personal history of nicotine dependence; Z23 Encounter for immunization
CPT/HCPCS: 71250; 72158; 74177; 83605; 84145; 85007; 86361; 86480; 86592; 86701; 86702; 86705; 86706; 86738; 87015; 87040; 87070; 87205; 87206; 87340; 87389; 87449; 87535; 87536; 87556; 87804; 87899; 87900; 87901; 87903; 87904; 87906; 90686; 93005; 94640; 97165; 97535; A9585; G0378; J0456; J0692; J0696; J1956; J2405; J2543; J3370; J3490; J7030; J7040; J7050; J7060

== ENCOUNTER 2019-09-08 09:25 | Emergency (ER) | payer MEDICAID ==
[~2019-09-08] VITALS: Ht 170.2 cm; Wt 63.6 kg
[~2019-09-08 09:25] MED LIST: ETHA400T8 PO; ISON300 PO; PYRA500 PO; PYRI50 PO; RIFA300 PO
[2019-09-08 10:34] LABS: BASOPHILS % (AUTO) 0.8 % (0.0-2.0); EOSINOPHILS % (AUTO) 2.2 % (1.0-6.0); HEMATOCRIT 44.6 % (41-53); HEMOGLOBIN 15.2 g/dL (13.5-17.5); LYMPHOCYTES # (AUTO) 1.7 K/uL (1.0-4.8); LYMPHOCYTES % (AUTO) 30.1 % (22.0-44.0); MEAN CORPUSCULAR HEMOGLOBIN 31.5 pg (26.0-34.0); MEAN CORPUSCULAR HGB CONC 34.1 G/dL (31.0-37.0); MEAN CORPUSCULAR VOLUME 92 fL (80-100); MONOCYTES # (AUTO) 0.8 K/uL (0.1-1.0); NEUTROPHILS # (AUTO) 2.9 K/uL (1.8-7.7); NEUTROPHILS % (AUTO) 52.9 % (40.0-70.0); PLATELET COUNT (AUTO) 185 K/uL (150-450); RED BLOOD CELL COUNT(AUTO) 4.83 MIL/uL (4.50-5.90); RED CELL DISTRIBUTION WIDTH 12.7 % (11.5-14.5)
[2019-09-08 10:43] LABS: ANION GAP 5 mmol/L (8-16); CARBON DIOXIDE 31 mmol/L (22-29); CHLORIDE 101 mmol/L (98-107); CREATININE 0.93 mg/dL (0.60-1.30); GLOMERULAR FILTR. RATE CALC > 60 mL/min (>60); GLUCOSE,RANDOM 99 mg/dL (70-110); POTASSIUM 4.1 mmol/L (3.5-5.1); SODIUM SERUM 137 mmol/L (136-145); UREA NITROGEN, BLOOD 8 mg/dL (7-18)
[2019-09-08 10:48] LABS: ALANINE AMINOTRANSFERASE 30 U/L (12-78); ALBUMIN 3.9 g/dL (3.4-5.0); ALKALINE PHOSPHATASE 83 U/L (46-116); ASPARTATE AMINOTRANSFERASE 17 U/L (15-37); BILIRUBIN,TOTAL 0.3 mg/dL (0.1-1.0); LIPASE 186 U/L (73-393); TOTAL PROTEIN, SERUM 7.2 g/dL (6.4-8.2)
[2019-09-08 10:51] LABS: LACTIC ACID 1.3 mmol/L (0.4-2.0)
[2019-09-08] MEDS ORDERED: GADOBUTROL 1 MMOL/ML 10 ML VIAL IVP ONE (11:29)
[2019-09-08 13:26] LABS: APPEARANCE,URINE CLEAR (CLEAR); BILIRUBIN,URINE NEGATIVE (NEGATIVE); GLUCOSE, URINE (UA) NEGATIVE (NEGATIVE); KETONES,URINE NEGATIVE (NEGATIVE); LEUKOCYTE ESTERASE ,URINE NEGATIVE (NEGATIVE); NITRATE,URINE NEGATIVE (NEGATIVE); OCCULT BLOOD,URINE NEGATIVE (NEGATIVE); PH,URINE 6.5 (5.0-8.0); PROTEIN,URINE NEGATIVE (NEGATIVE); UROBILINOGEN,URINE 0.2 mg/dL (<=1.0)
[2019-09-08 13:40] VITALS: BP 107/66
[2019-09-08 13:51] LABS: BACTERIA,URINE None Seen /HPF (None Seen); RBC,URINE None Seen /HPF (0-2); SQUAMOUS EPITHELIAL CELL,UR None Seen /LPF (None Seen); WBC,URINE None Seen /HPF (0-5)
== END 2019-09-08 13:41 | disposition home or self-care (01) ==
LOC: EMS 09:26
DX: M51.26 Other intervertebral disc displacement, lumbar region (principal); M79.10 Myalgia, unspecified site; F15.90 Other stimulant use, unspecified, uncomplicated; Z87.891 Personal history of nicotine dependence
CPT/HCPCS: 36415; 72158; 80053; 81001; 83605; 83690; 85025; 99284; A9585

== ENCOUNTER 2019-12-23 11:55 | Emergency (ER) | payer MEDICAID ==
[~2019-12-23] VITALS: Ht 170.2 cm; Wt 68.2 kg
[2019-12-23] MEDS ORDERED: EMTR1TAB15 PO (12:09)
[2019-12-23] MEDS ORDERED: DOLU10TA PO (12:09)
[2019-12-23] MEDS ORDERED: METHOCARBAMOL 500 MG TABLET PO ONE (13:45)
[2019-12-23] MEDS ORDERED: LIDOCAINE 5% TRANSDERMAL PATCH TD ONE (13:45)
[2019-12-23] MEDS ORDERED: KETOROLAC TROMETHAMINE 30 MG/ML VIAL IM ONE (13:45)
[2019-12-23] MEDS ORDERED: HYDROCODONE/ACETAMINOPHEN 5-325 MG TABLET PO ONE (15:15)
[2019-12-23] MEDS ORDERED: OxyCODONE HCL/ACETAMINOPHEN 5-325 MG TABLET PO ONE (18:15)
[2019-12-23 19:39] VITALS: BP 128/72
== END 2019-12-23 19:42 | disposition home or self-care (01) ==
LOC: EMS 11:58
DX: M51.26 Other intervertebral disc displacement, lumbar region (principal); Z87.891 Personal history of nicotine dependence; Z79.899 Other long term (current) drug therapy
CPT/HCPCS: 72100; 72131; 96372; 99284; J1885

== ENCOUNTER 2020-01-13 17:36 | Inpatient (IN) | payer MEDICAID ==
[~2020-01-13] VITALS: Ht 170.2 cm; Wt 66.3 kg
[~2020-01-13 17:36] MED LIST changes: +DOLU10TA PO; +EMTR1TAB15 PO
[2020-01-13] MEDS ORDERED: ONDANSETRON HCL 4 MG/2 ML VIAL IM ONE (18:30)
[2020-01-13 19:02] LABS: BASOPHILS % (AUTO) 0.7 % (0.0-2.0); EOSINOPHILS % (AUTO) 0.5 % (1.0-6.0); HEMATOCRIT 45.4 % (41-53); HEMOGLOBIN 15.8 g/dL (13.5-17.5); LYMPHOCYTES % (AUTO) 24.7 % (22.0-44.0); MEAN CORPUSCULAR HEMOGLOBIN 32.8 pg (26.0-34.0); MEAN CORPUSCULAR HGB CONC 34.9 G/dL (31.0-37.0); MEAN CORPUSCULAR VOLUME 94 fL (80-100); MONOCYTES # (AUTO) 0.8 K/uL (0.1-1.0); MONOCYTES % (AUTO) 9.6 % (2.0-9.0); NEUTROPHILS # (AUTO) 5.1 K/uL (1.8-7.7); NEUTROPHILS % (AUTO) 64.5 % (40.0-70.0); PLATELET COUNT (AUTO) 291 K/uL (150-450); RED BLOOD CELL COUNT(AUTO) 4.82 MIL/uL (4.50-5.90); RED CELL DISTRIBUTION WIDTH 13.4 % (11.5-14.5)
[2020-01-13 19:17] LABS: ANION GAP 8 mmol/L (8-16); CALCIUM, TOTAL 8.9 mg/dL (8.8-10.5); CARBON DIOXIDE 29 mmol/L (22-29); CHLORIDE 101 mmol/L (98-107); CREATININE 0.96 mg/dL (0.60-1.30); GLOMERULAR FILTR. RATE CALC > 60 mL/min (>60); GLUCOSE,RANDOM 100 mg/dL (70-110); POTASSIUM 3.5 mmol/L (3.5-5.1); SODIUM SERUM 138 mmol/L (136-145); UREA NITROGEN, BLOOD 13 mg/dL (7-18)
[2020-01-13 19:23] LABS: ALANINE AMINOTRANSFERASE 66 U/L (12-78); ALBUMIN 4.4 g/dL (3.4-5.0); ALKALINE PHOSPHATASE 82 U/L (46-116); ASPARTATE AMINOTRANSFERASE 72 U/L (15-37); TOTAL PROTEIN, SERUM 7.8 g/dL (6.4-8.2)
[2020-01-13] MEDS ORDERED: OLANZapine 5 MG TABLET PO PRN ×2 (21:45→22:00)
[2020-01-13] MEDS ORDERED: LORazepam 2 MG TABLET PO PRN (21:45)
[2020-01-13 23:05] LABS: AMPHET/METH SCREEN,URINE POSITIVE (NEGATIVE); BARBITURATE SCREEN, URINE NEGATIVE (NEGATIVE); BENZODIAZEPINES SCREEN,URINE NEGATIVE (NEGATIVE); CANNABINOID SCREEN,URINE NEGATIVE (NEGATIVE); COCAINE SCREEN,URINE NEGATIVE (NEGATIVE); METHADONE SCREEN, URINE NEGATIVE (NEGATIVE); OPIATE SCREEN,URINE NEGATIVE (NEGATIVE)
[2020-01-13 23:12] LABS: PHENCYCLIDINE SCREEN,URINE NEGATIVE (NEGATIVE)
[2020-01-14] MEDS: ZOLPIDEM TARTRATE 10 MG TABLET PO PRN ×2 (00:54→21:06)
[2020-01-14 01:22] VITALS: BP 109/70
[2020-01-14] MEDS ORDERED: ONDANSETRON HCL 4 MG TABLET PO PRN ×2 (08:00→15:00)
[2020-01-14 08:08] LABS: CHOL/HDL RATIO 3.2 (4.2-7.3)
[2020-01-14] MEDS: MULTIVITAMINS WITH MINERALS, THERAPEUTIC TABLET PO SCH (09:51)
[2020-01-14] MEDS: PENICILLIN V POTASSIUM 500 MG TABLET PO SCH ×4 (09:51→21:08)
[2020-01-14] MEDS ORDERED: ETHAMBUTOL HCL 400 MG TABLET PO SCH (12:00)
[2020-01-14] MEDS: EMTRICITABINE/TENOFOVIR 200-300 MG TABLET PO SCH (13:30)
[2020-01-14] MEDS: PYRIDOXINE HCL 50 MG TABLET PO SCH (13:31)
[2020-01-14] MEDS: ISONIAZID 300 MG TABLET PO SCH (13:31)
[2020-01-14] MEDS: DOLUTEGRAVIR SODIUM 50 MG TABLET PO SCH (13:31)
[2020-01-14] MEDS: RIFAMPIN 300 MG CAPSULE PO SCH (13:31)
[2020-01-14] MEDS: SERTRALINE HCL 50 MG TABLET PO SCH (13:31)
[2020-01-14] MEDS ORDERED: ALBUTEROL SULFATE HFA 90 MCG/PUFF 8 GM INHALER IH PRN (15:00)
[2020-01-14] MEDS ORDERED: IBUPROFEN 400 MG TABLET PO PRN (15:00)
[2020-01-14] MEDS ORDERED: MAG HYDROX/AL HYDROX/SIMETH ES 30 ML SUSPENSION UDCUP PO PRN (15:00)
[2020-01-14] MEDS ORDERED: MAGNESIUM HYDROXIDE SUSPENSION 30 ML UDCUP PO PRN (15:00)
[2020-01-14] MEDS ORDERED: PETROLATUM,WHITE 28 GM JELLY TP PRN (15:00)
[2020-01-14] MEDS ORDERED: NICOTINE 14 MG/24 HOUR PATCH TD PRN (15:00)
[2020-01-14] MEDS ORDERED: GuaiFENesin/D-METHORPHAN [SUGAR-FREE] 200-20MG/10 ML SYRUP UDCUP PO PRN (15:00)
[2020-01-14] MEDS ORDERED: ACETAMINOPHEN 325 MG TABLET PO PRN (15:00)
[2020-01-14] MEDS ORDERED: CloNIDine HCL 0.1 MG TABLET PO PRN (15:00)
[2020-01-14] MEDS ORDERED: DOCUSATE SODIUM 100 MG CAPSULE PO PRN (15:00)
[2020-01-14 16:29] VITALS: BP 109/62
[2020-01-15 00:57] VITALS: BP 110/72
[2020-01-15] MEDS: RIFAMPIN 300 MG CAPSULE PO SCH (08:38)
[2020-01-15] MEDS: DOLUTEGRAVIR SODIUM 50 MG TABLET PO SCH (08:38)
[2020-01-15] MEDS: ISONIAZID 300 MG TABLET PO SCH (08:38)
[2020-01-15] MEDS: EMTRICITABINE/TENOFOVIR 200-300 MG TABLET PO SCH (08:38)
[2020-01-15] MEDS: SERTRALINE HCL 50 MG TABLET PO SCH (08:39)
[2020-01-15] MEDS: PENICILLIN V POTASSIUM 500 MG TABLET PO SCH ×4 (08:39→20:35)
[2020-01-15] MEDS: MULTIVITAMINS WITH MINERALS, THERAPEUTIC TABLET PO SCH (08:39)
[2020-01-15 08:59] VITALS: BP 131/64
[2020-01-15] MEDS: LOPERAMIDE HCL 2 MG CAPSULE PO PRN ×2 (13:36→21:46)
[2020-01-15] MEDS: PYRIDOXINE HCL 50 MG TABLET PO SCH (15:33)
[2020-01-15 16:54] VITALS: BP 130/90
[2020-01-16 06:38] VITALS: BP 105/65
[2020-01-16 08:30] VITALS: BP 100/77
[2020-01-16] MEDS: SERTRALINE HCL 50 MG TABLET PO SCH (08:57)
[2020-01-16] MEDS: PYRIDOXINE HCL 50 MG TABLET PO SCH (08:57)
[2020-01-16] MEDS: DOLUTEGRAVIR SODIUM 50 MG TABLET PO SCH (08:57)
[2020-01-16] MEDS: EMTRICITABINE/TENOFOVIR 200-300 MG TABLET PO SCH (08:57)
[2020-01-16] MEDS: PENICILLIN V POTASSIUM 500 MG TABLET PO SCH ×2 (08:57→12:22)
[2020-01-16] MEDS: ISONIAZID 300 MG TABLET PO SCH (08:57)
[2020-01-16] MEDS: RIFAMPIN 300 MG CAPSULE PO SCH (08:57)
[2020-01-16] MEDS: MULTIVITAMINS WITH MINERALS, THERAPEUTIC TABLET PO SCH (08:57)
[2020-01-16] MEDS: LOPERAMIDE HCL 2 MG CAPSULE PO PRN (12:22)
[2020-01-16] MEDS ORDERED: DOLU50TA PO (12:53)
[2020-01-16] MEDS ORDERED: SERT50TA12 PO (12:53)
[2020-01-16] MEDS ORDERED: PENI500T2 PO (12:53)
[2020-01-16] MEDS ORDERED: RIFA300 PO (12:53)
[2020-01-16] MEDS ORDERED: TRUVT PO (12:53)
[2020-01-16] MEDS ORDERED: MULT-1239 PO (12:53)
[2020-01-16] MEDS ORDERED: PYRI50 PO (12:53)
[2020-01-16] MEDS ORDERED: ISON300 PO (12:53)
== END 2020-01-16 15:00 | disposition home or self-care (01) | DRG 751 ==
LOC: EMS 17:36 → B2S 22:00
PROVIDERS: ADMIT Psychiatry & Neurology Child & Adolescent Psychiatry; ATTEND Psychiatry & Neurology Child & Adolescent Psychiatry
DX: F33.2 Major depressive disorder, recurrent severe without psychotic features (principal); R45.851 Suicidal ideations; F15.90 Other stimulant use, unspecified, uncomplicated; F19.10 Other psychoactive substance abuse, uncomplicated; Z21 Asymptomatic human immunodeficiency virus [HIV] infection status; Z22.7 Latent tuberculosis; Z87.891 Personal history of nicotine dependence
CPT/HCPCS: 87081; G0480; J2405

== ENCOUNTER 2020-01-23 13:33 | Emergency (ER) | payer MEDICAID ==
[~2020-01-23] VITALS: Ht 172.7 cm; Wt 68.2 kg
[~2020-01-23 13:33] MED LIST changes: -DOLU10TA PO; +DOLU50TA PO; -EMTR1TAB15 PO; -ETHA400T8 PO; +MULT-1239 PO; +PENI500T2 PO; -PYRA500 PO; +SERT50TA12 PO; +TRUVT PO
[2020-01-23] MEDS ORDERED: SODIUM CHLORIDE 0.9% 1,000 ML IV ONE ×2 (14:30→17:00)
[2020-01-23] MEDS ORDERED: LORazepam 2 MG/ML VIAL IVP ONE (14:30)
[2020-01-23 14:33] LABS: BASOPHILS % (AUTO) 0.2 % (0.0-2.0); EOSINOPHILS % (AUTO) 0.5 % (1.0-6.0); HEMATOCRIT 46.7 % (41-53); HEMOGLOBIN 16.2 g/dL (13.5-17.5); LYMPHOCYTES # (AUTO) 2.2 K/uL (1.0-4.8); LYMPHOCYTES % (AUTO) 13.6 % (22.0-44.0); MEAN CORPUSCULAR HEMOGLOBIN 32.8 pg (26.0-34.0); MEAN CORPUSCULAR HGB CONC 34.7 G/dL (31.0-37.0); MEAN CORPUSCULAR VOLUME 95 fL (80-100); MONOCYTES # (AUTO) 0.9 K/uL (0.1-1.0); MONOCYTES % (AUTO) 5.6 % (2.0-9.0); NEUTROPHILS # (AUTO) 12.9 K/uL (1.8-7.7); NEUTROPHILS % (AUTO) 80.1 % (40.0-70.0); PLATELET COUNT (AUTO) 325 K/uL (150-450); RED BLOOD CELL COUNT(AUTO) 4.94 MIL/uL (4.50-5.90)
[2020-01-23 14:44] LABS: ANION GAP 10 mmol/L (8-16); CALCIUM, TOTAL 9.4 mg/dL (8.8-10.5); CARBON DIOXIDE 28 mmol/L (22-29); CHLORIDE 98 mmol/L (98-107); CREATININE 0.99 mg/dL (0.60-1.30); GLOMERULAR FILTR. RATE CALC > 60 mL/min (>60); GLUCOSE,RANDOM 95 mg/dL (70-110); POTASSIUM 3.8 mmol/L (3.5-5.1); SODIUM SERUM 136 mmol/L (136-145); UREA NITROGEN, BLOOD 9 mg/dL (7-18)
[2020-01-23 14:47] LABS: INR 1.2 (0.9-1.1); PROTHROMBIN TIME 12.5 SEC (9.4-11.6)
[2020-01-23 15:09] LABS: ALANINE AMINOTRANSFERASE 67 U/L (12-78); ALBUMIN 4.6 g/dL (3.4-5.0); ALKALINE PHOSPHATASE 78 U/L (46-116); ASPARTATE AMINOTRANSFERASE 18 U/L (15-37); BILIRUBIN,TOTAL 0.4 mg/dL (0.1-1.0); CREATINE KINASE, TOTAL ONLY 119 U/L (39-308)
[2020-01-23 16:16] LABS: AMPHET/METH SCREEN,URINE POSITIVE (NEGATIVE); BARBITURATE SCREEN, URINE NEGATIVE (NEGATIVE); BENZODIAZEPINES SCREEN,URINE NEGATIVE (NEGATIVE); CANNABINOID SCREEN,URINE NEGATIVE (NEGATIVE); COCAINE SCREEN,URINE NEGATIVE (NEGATIVE); METHADONE SCREEN, URINE NEGATIVE (NEGATIVE); OPIATE SCREEN,URINE NEGATIVE (NEGATIVE); PHENCYCLIDINE SCREEN,URINE NEGATIVE (NEGATIVE)
[2020-01-23 18:30] VITALS: BP 111/69
== END 2020-01-23 18:57 | disposition home or self-care (01) ==
LOC: EMS 13:34
DX: R06.4 Hyperventilation (principal); R07.9 Chest pain, unspecified; F41.9 Anxiety disorder, unspecified; T43.625A Adverse effect of amphetamines, initial encounter; I51.9 Heart disease, unspecified; Z87.891 Personal history of nicotine dependence; Z91.018 Allergy to other foods; Y92.89 Other specified places as the place of occurrence of the external cause
CPT/HCPCS: 36415; 71045; 80053; 80307; 82550; 84484; 85025; 85610; 85730; 93005; 96374; 99285; J2060; J7030

== ENCOUNTER 2020-01-25 14:50 | Emergency (ER) | payer MEDICAID ==
[~2020-01-25] VITALS: Ht 170.2 cm; Wt 63.6 kg
[2020-01-25] MEDS ORDERED: LORazepam 2 MG/ML VIAL IVP ONE (15:30)
[2020-01-25] MEDS ORDERED: SODIUM CHLORIDE 0.9% 1,000 ML IV ONE (15:30)
[2020-01-25 18:46] VITALS: BP 118/88
== END 2020-01-25 18:48 | disposition home or self-care (01) ==
LOC: EMS 14:50
DX: F15.10 Other stimulant abuse, uncomplicated (principal); I11.9 Hypertensive heart disease without heart failure; Z87.891 Personal history of nicotine dependence; Z79.899 Other long term (current) drug therapy
CPT/HCPCS: 93005; 96374; 99285; J2060; J7030

== ENCOUNTER 2020-02-01 12:33 | Emergency (ER) | payer MEDICAID ==
[~2020-02-01] VITALS: Ht 170.2 cm; Wt 59.1 kg
[~2020-02-01 12:33] MED LIST changes: -ISON300 PO; -PENI500T2 PO; -RIFA300 PO
[2020-02-01 13:17] LABS: AMPHET/METH SCREEN,URINE POSITIVE (NEGATIVE); BARBITURATE SCREEN, URINE NEGATIVE (NEGATIVE); BENZODIAZEPINES SCREEN,URINE NEGATIVE (NEGATIVE); CANNABINOID SCREEN,URINE NEGATIVE (NEGATIVE); COCAINE SCREEN,URINE NEGATIVE (NEGATIVE); METHADONE SCREEN, URINE NEGATIVE (NEGATIVE); OPIATE SCREEN,URINE NEGATIVE (NEGATIVE); PHENCYCLIDINE SCREEN,URINE NEGATIVE (NEGATIVE)
[2020-02-01 13:36] LABS: BASOPHILS % (AUTO) 1.1 % (0.0-2.0); EOSINOPHILS % (AUTO) 0.4 % (1.0-6.0); HEMATOCRIT 47.3 % (41-53); HEMOGLOBIN 16.2 g/dL (13.5-17.5); LYMPHOCYTES # (AUTO) 1.3 K/uL (1.0-4.8); LYMPHOCYTES % (AUTO) 30.6 % (22.0-44.0); MEAN CORPUSCULAR HEMOGLOBIN 32.6 pg (26.0-34.0); MEAN CORPUSCULAR HGB CONC 34.2 G/dL (31.0-37.0); MEAN CORPUSCULAR VOLUME 95 fL (80-100); MONOCYTES # (AUTO) 0.4 K/uL (0.1-1.0); MONOCYTES % (AUTO) 10.6 % (2.0-9.0); NEUTROPHILS # (AUTO) 2.4 K/uL (1.8-7.7); NEUTROPHILS % (AUTO) 57.3 % (40.0-70.0); PLATELET COUNT (AUTO) 358 K/uL (150-450); RED BLOOD CELL COUNT(AUTO) 4.96 MIL/uL (4.50-5.90)
[2020-02-01 13:44] LABS: ANION GAP 10 mmol/L (8-16); CALCIUM, TOTAL 9.3 mg/dL (8.8-10.5); CARBON DIOXIDE 27 mmol/L (22-29); CHLORIDE 101 mmol/L (98-107); GLOMERULAR FILTR. RATE CALC > 60 mL/min (>60); GLUCOSE,RANDOM 105 mg/dL (70-110); POTASSIUM 3.9 mmol/L (3.5-5.1); SODIUM SERUM 138 mmol/L (136-145); UREA NITROGEN, BLOOD 9 mg/dL (7-18)
[2020-02-01 13:50] LABS: ALANINE AMINOTRANSFERASE 44 U/L (12-78); ALBUMIN 4.1 g/dL (3.4-5.0); ALKALINE PHOSPHATASE 75 U/L (46-116); ASPARTATE AMINOTRANSFERASE 15 U/L (15-37); BILIRUBIN,TOTAL 0.5 mg/dL (0.1-1.0); TOTAL PROTEIN, SERUM 7.5 g/dL (6.4-8.2)
[2020-02-01 14:03] VITALS: BP 127/76
== END 2020-02-01 14:36 | disposition home or self-care (01) ==
LOC: EMS 12:34
DX: F15.10 Other stimulant abuse, uncomplicated (principal); R07.89 Other chest pain; F22 Delusional disorders; I51.9 Heart disease, unspecified; F41.9 Anxiety disorder, unspecified; Z91.013 Allergy to seafood; Z79.899 Other long term (current) drug therapy
CPT/HCPCS: 36415; 80053; 80307; 85025; 93005; 99284; G0480